=== PATIENT | female | born 2000 | race Caucasian/White ===

== ENCOUNTER 2020-03-13 21:57 | Inpatient (IN) | payer OTHER ==
--- NOTE | 2020-03-13 22:29 | HP ---
Past Medical History - Admission Chief Complaint: Contractions History of Present Illness: 19yo @ 38+wks here in labor. Contractions started this AM. No VB/LOF. +FM PNC @ [facility] NR- transferred to [facility] care on 03/12 with one visit History Source: Patient Limitations to Obtaining History: Language Barrier - Past Medical History SOCIAL MEDIA INTERN: No: Alzheimer's, CVA, Dementia, Migraine, Multiple Sclerosis, Peripheral Neuropathy, Parkinson's, Seizure, Syncope, TIA, Vertigo, Other Cardiovascular: No: AFIB, Aneurysm, Aortic Insufficiency, Aortic Stenosis, CAD, CHF, Deep Vein Thrombosis, HTN, Hyperlipdemia, AR, Mitral Insufficiency, Mitral Stenosis, Murmur, Pulmonary Hypertension, Other Pulmonary: No: Asthma, Bronchitis, Cancer, COPD, O2 Dependent, Pneumonia, Previously Intubated, Pulmonary Embolus, Pulmonary Fibrosis, Sleep Apnea, Other Gastrointestinal: No: Ascites, Cancer, Constipation, Crohn's Disease, Diverticu litis, Diverticulosis, Esophageal Varices, Gastritis, GERD, GI Bleed, Hemorrhoids, Hiatal Hernia, Inflamatory Bowel Disease, Irritable Bowel Disease, Pancreatitis, Peptic Ulcer Disease, Ulcerative Colitis, Other Hepatobiliary: No: Cirrhosis, Cholelithiasis, Cholecystitis, Choledocholithiasis, Hepatitis A, Hepatitis B, Hepatitis C, Other Renal/: No: Renal Failure, Renal Inusuff, BPH, Cancer, Hematuria, Hemodialysis, Neurogenic Bladder, Renal Calculi, UTI, Other Reproductive: No: Ectopic , Endometriosis, Fibroids, PID, Polycystic Ovary Syndrome, Postmenopausal, Other ...: 3 ...Para: 2 ...Term: 2 ...: 0 ...Spon : 0 ...Induced : 0 ...Living Children: 2 ... Weeks Gestation by Dates: 38.1 ...EDC by Dates: 03/26/20 Additional OB History: GBS negative 02/24 Heme/Onc: Yes: Anemia Infectious Disease: No: AIDS, C-Diff, Herpes Zoster, HIV, MRSA, STD's, Tuberculosis, VREF, Other Psych: No: Addictions, Anxiety, Bipolar, Depression, Panic, Psychosis, Schizophrenia, Other Musculoskeletal: No: Bursitis, Chronic low back pain, Hemiparesis, Hemiplegia, Osteoarthritis, Paraplegia, Other Rheumatology: No: Fibromyalgia, Gout, Lupus, Rheumatoid Arthritis, Sarcoidosis, Vasculitis, Other ENT: No: Allergic Rhinitis, Sinusitis, Other Endocrine: No: Lanier's Disease, Sheree's Disease, Diabetes Insipidus, Diabetes Mellitus, Hyperparathyroidism, Hyperthyroidism, Hypothyroidism, Osteopenia, SIADH, Other - Past Surgical History Past Surgical History: Yes: None Hx Myomectomy: No Hx Transabdominal Cerclage: No Physical Exam - Maternity Constitutional: Yes: Well Nourished, No Distress, Calm - Abdominal Exam/OB Number of Fetuses: Single Presentation: Vertex Contractions: Yes Regularity: Irregular Intensity: Moderate Monitor Mode: External Heart Rate Location: LUQ, LLQ Category: I Accelerations: Non-Uniform Decelerations: None - Vaginal Exam/OB Vaginal Bleeding: No Speculum Exam: No Dilatation (cm): 7 Effacement (%): 100 Amniotic Membrane Status: Intact Presentation: Vertex/Position Station: -2 - Physical Exam Edema: No Assessment/Plan 19yo @ 38.1wks here in labor Admit to L&D IVFs Admission labs GBS negative 02/25/20 AROM prn Epidural prn Anticipate Raul Schmitt MD
[2020-03-13] MEDS ORDERED: ELECTROLYTE-148 SOLN 1,000 ML IV SCH (22:30)
[2020-03-13 23:05] LABS: BASO % 0.3 % (0-2.0); EOS % 0.4 % (0-4.5); HEMATOCRIT 35.7 % (32.4-45.2); HEMOGLOBIN 11.9 GM/dL (10.7-15.3); LYMPH % 26.2 % (8-40); MCH 27.7 pg (25.7-33.7); MCHC 33.3 g/dl (32.0-36.0); MEAN CELL VOLUME 83.1 fl (80-96); MONO % 6.5 % (3.8-10.2); NEUT % 66.6 % (42.8-82.8); PLATELET COUNT 161 K/MM3 (134-434); RDW 15.1 % (11.6-15.6); WHITE BLOOD COUNT 9.9 K/mm3 (4.0-10.0)
[2020-03-13 23:11] LABS: INR 1.02 (0.83-1.09)
[2020-03-13 23:14] LABS: ACTIVATED PTT 26.5 SECONDS (25.2-36.5)
--- NOTE | 2020-03-13 23:21 | PN ---
Progress Note, Labor Vaginal Exam #1 Labor Exam Date: 03/13/20 Labor Exam Time: 23:20 Heart Rate (range): Cat I Dilatation: 7 Effacement (%): 100 Amniotic Membrane Status: Ruptured Presentation: Vertex/Position Station: -1 Remarks: SROM, forebag still present. Ruptured, light meconium Anticipate Raul Schmitt
[2020-03-13 23:30] LABS: BLOOD UREA NITROGEN 8.2 mg/dL (7-18); CALCIUM 8.5 mg/dL (8.5-10.1); CREATININE 0.6 mg/dL (0.55-1.3)
--- NOTE | 2020-03-14 00:04 | PN ---
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 38 week . No nuchal. Known light meconium. No anesthsia. Spontaneous delivery of anterior shoulder and body. Infant placed on mother's abdomen. Cord clamped and cut. vigorous. Weight pending to allow skin to skin. Apgars 9/9. Spontaneous delivery of intact placenta, 3VC. Fundus firm. Perineum with 1st degree midline laceration. Repaired after 0cc of 1% lidocaine injected- with 3-0 chromic. Hemostasis noted. Mother and baby doing well. Viviane Schmitt MD
[2020-03-14] MEDS ORDERED: BISACODYL 10 MG SUPP.RECT RC PRN (00:05)
[2020-03-14] MEDS ORDERED: BENZOCAINE 20% 57 GM BOTTLE TP PRN (00:05)
[2020-03-14] MEDS ORDERED: BENZOCAINE 28 GM HEMORRHOIDAL OINTMENT TP PRN (00:05)
[2020-03-14] MEDS ORDERED: METHYLERGONOVINE MALEATE 0.2 MG/1 ML AMP IM PRN (00:05)
[2020-03-14] MEDS ORDERED: WITCH HAZEL 50% (TUCKS) 40 PAD/JAR PAD TP PRN (00:05)
[2020-03-14] MEDS ORDERED: OXYTOCIN 20 UNITS in 0.9% NS 20 UNIT/1,000 ML INFUS.BAG IV SCH (00:15)
[2020-03-14 00:25] VITALS: BMI 32.3
[2020-03-14] MEDS: ACETAMINOPHEN 325 MG TABLET (FP) PO PRN (05:02)
[2020-03-14] MEDS: IBUPROFEN 600 MG TABLET (FP) PO PRN (05:03)
--- NOTE | 2020-03-14 06:36 | PN ---
Post Progress Note Type of Delivery: Vital Signs: Vital Signs Temperature 98.3 F 03/14/20 03:30 Pulse Rate 76 03/14/20 03:30 Respiratory Rate 20 03/14/20 03:30 Blood Pressure 117/71 03/14/20 03:30 O2 Sat by Pulse Oximetry (%) 100 03/14/20 00:50 Uterus: Yes: Fundus below umbilicus Incision: Yes: Dressing dry and intact Abdomen/GI: Yes: Abdomen soft, Tolerating PO Lochia: Yes: Rubra Perineum: Yes: Laceration - Labs Labs: CBC WBC 9.9 K/mm3 (4.0-10.0) 03/13/20 23:00 RBC 4.30 M/mm3 (3.60-5.2) 03/13/20 23:00 Hgb 11.9 GM/dL (10.7-15.3) 03/13/20 23:00 Hct 35.7 % (32.4-45.2) 03/13/20 23:00 MCV 83.1 fl (80-96) 03/13/20 23:00 MCH 27.7 pg (25.7-33.7) 03/13/20 23:00 MCHC 33.3 g/dl (32.0-36.0) 03/13/20 23:00 RDW 15.1 % (11.6-15.6) 03/13/20 23:00 Plt Count 161 K/MM3 (134-434) 03/13/20 23:00 MPV 11.0 fl (7.5-11.1) 03/13/20 23:00 Absolute Neuts (auto) 6.6 K/mm3 (1.5-8.0) 03/13/20 23:00 Neutrophils % 66.6 % (42.8-82.8) 03/13/20 23:00 Lymphocytes % 26.2 % (8-40) 03/13/20 23:00 Monocytes % 6.5 % (3.8-10.2) 03/13/20 23:00 Eosinophils % 0.4 % (0-4.5) 03/13/20 23:00 Basophils % 0.3 % (0-2.0) 03/13/20 23:00 Nucleated RBC % 0 % (0-0) 03/13/20 23:00 Assessment/Plan 19yo s/p , PPD#1 Routine PP care OOB, ambulate today F/U AM labs D/C to home PPD#2 Raul Schmitt MD
[2020-03-14] MEDS: PRENATAL VITAMINS W/ FOLIC ACID TABLET (FP) PO SCH (10:29)
[2020-03-14 22:00] VITALS: TEMP 97.8
[2020-03-15] MEDS: ACETAMINOPHEN 325 MG TABLET (FP) PO PRN (05:08)
[2020-03-15] MEDS: IBUPROFEN 600 MG TABLET (FP) PO PRN (05:08)
--- NOTE | 2020-03-15 06:43 | DS ---
Physical Exam-[facility] Vital Signs: Vital Signs Temperature 97.8 F 03/14/20 21:56 Pulse Rate 72 03/14/20 21:56 Respiratory Rate 18 03/14/20 21:56 Blood Pressure 123/82 03/14/20 21:56 O2 Sat by Pulse Oximetry (%) 100 03/14/20 00:50 Constitutional: Yes: Well Nourished, No Distress, Calm Eyes: Yes: WNL, Conjunctiva Clear, EOM Intact HENT: Yes: WNL, Atraumatic, Normocephalic Neck: Yes: WNL, Supple, Trachea Midline Cardiovascular: Yes: WNL, Regular Rate and Rhythm Respiratory: Yes: WNL, Regular, CTA Bilaterally Gastrointestinal: Yes: WNL ...Rectal Exam: Yes: WNL Renal/: Yes: WNL ....Post : Yes: Uterus firm, Uterus non-tender, Slight lochia rubra Breast(s): Yes: WNL Musculoskeletal: Yes: WNL Extremities: Yes: WNL Edema: No Integumentary: Yes: WNL Neurological: Yes: WNL, Alert, Oriented ...Motor Strength: WNL Psychiatric: Yes: WNL, Alert, Oriented Labs: CBC, BMP 03/13/20 23:00 03/13/20 23:00 Delivery - Delivery Vaginal Delivery: Spontaneous Type of Anesthesia: None Episiotomy/Laceration: None, Midline, 1st degree EBL (cc): 250 Delivery, Single - Stages of Labor Date 1st Stage Initiatied: 03/13/20 Time 1st Stage Initiated: 16:00 Date 2nd Stage Initiated: 03/13/20 Time 2nd Stage Initiated: 23:38 Date of Delivery: 03/13/20 Time of Delivery: 23:40 Time Placenta Delivered: 23:48 Placenta: Yes: Spontaneous - Condition of Well Drill Operator/Parts Picker Present: No Infant Gender: Male Weight: 6 lb 15 oz Position: Left, OA Total Hours ROM (Hrs/Mins): 25 min - 1 Minute Total Score: 9 5 Minutes Total Score: 9 - Alexander Feeding Plan Initial Plan: Elected not to breastfeed exclusively throughout hospitalization Discharge Summary Problems reviewed: Yes Reason For Visit: LABOR ADMIT Procedures: Principal: Hospital Course: no complication Plan of Treatment: follow up [facility] care 4 weeks Condition: Stable - Instructions Diet, Activity, Other Instructions: Regular Diet Follow up in 4 weeks for your visit Referrals: Viviane Schmitt MD [Staff Physician] - Disposition: HOME - Home Medications Comprehensive Discharge Medication List: Ambulatory Orders + Dha Combo Pack 03/13/20
[2020-03-15 09:36] LABS: BASO % 0.5 % (0-2.0); EOS % 1.7 % (0-4.5); HEMATOCRIT 35.2 % (32.4-45.2); HEMOGLOBIN 11.4 GM/dL (10.7-15.3); LYMPH % 41.4 % (8-40); MCH 27.1 pg (25.7-33.7); MCHC 32.4 g/dl (32.0-36.0); MEAN CELL VOLUME 83.7 fl (80-96); MEAN PLT VOLUME 10.3 fl (7.5-11.1); MONO % 6.7 % (3.8-10.2); NEUT % 49.7 % (42.8-82.8); PLATELET COUNT 144 K/MM3 (134-434); RDW 15.2 % (11.6-15.6); WHITE BLOOD COUNT 7.9 K/mm3 (4.0-10.0)
[2020-03-15] MEDS: PRENATAL VITAMINS W/ FOLIC ACID TABLET (FP) PO SCH (10:01)
[2020-03-15 11:15] VITALS: BP 115/76; PULSE 63
[2020-03-15] MEDS ORDERED: SENNOSIDES/DOCUSATE COMBO (SENNA PLUS) TABLET (UD) PO PRN (22:00)
== END 2020-03-15 11:35 | disposition home or self-care (01) | DRG 560 ==
LOC: JLDR 21:57 → J3W 03-14 02:56
PROVIDERS: ADMIT Obstetrics & Gynecology; ATTEND Obstetrics & Gynecology
PROC: 10E0XZZ Delivery of Products of Conception, External Approach (ICD-10-PCS; principal; 2020-03-14)
PROC: 0HQ9XZZ Repair Perineum Skin, External Approach (ICD-10-PCS; 2020-03-14)
DX: O42.02 Full-term premature rupture of membranes, onset of labor within 24 hours of rupture (principal); O70.0 First degree perineal laceration during delivery; O77.0 Labor and delivery complicated by meconium in amniotic fluid; Z86.2 Personal history of diseases of the blood and blood-forming organs and certain disorders involving the immune mechanism; Z37.0 Single live birth; Z3A.38 38 weeks gestation of pregnancy
CPT/HCPCS: 36415; 59409; 80048; 85025; 85610; 85730; 86780; 86850; 86900; 86901; U0003